=== PATIENT | male | born 1970 | race Hispanic/Latino ===

== ENCOUNTER → 2017-11-04 | Day surgery (SDC) | payer OTHER ==
[~2017-11-04] VITALS: Ht 167.6 cm; Wt 150.6 kg
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
== END ==
LOC: STS 01:46
DX: S43.421A Sprain of right rotator cuff capsule, initial encounter (principal); M13.811 Other specified arthritis, right shoulder; X58.XXXA Exposure to other specified factors, initial encounter; I10 Essential (primary) hypertension; E66.9 Obesity, unspecified; Z68.33 Body mass index [BMI] 33.0-33.9, adult; M54.9 Dorsalgia, unspecified
CPT/HCPCS: C9399; J0131; J0690; J1100; J2250; J2405; J2795